=== PATIENT | female | born 1990 | race Caucasian/White ===

== ENCOUNTER 2016-11-26 13:13 | Emergency (ER) | payer MEDICAID ==
--- NOTE | 2016-11-26 14:21 | ER Document Report ---
ED Medical Screen (RME) - General Chief Complaint: Abdominal Pain Stated Complaint: ABDOMINAL PAIN Time Seen by Provider: 11/26/16 14:20 Notes: Patient states she has suprapubic abdominal pain. She has some dysuria. No vaginal bleeding or discharge. No chronic medical conditions. No previous abdominal surgeries. She states her periods have been regular. TRAVEL OUTSIDE OF THE [place] IN LAST 30 DAYS: No - Related Data Allergies/Adverse Reactions: No Known Allergies Allergy (Verified 11/26/16 14:15) Past Medical History - Social History Chew tobacco use (# tins/day): No Frequency of alcohol use: None Drug Abuse: None Renal/ Medical History: Denies: Hx Peritoneal Dialysis Surgical Hx: Negative Physical Exam - Vital signs Vitals: Temp Pulse Resp BP Pulse Ox 98.6 F 92 16 139/71 H 100 11/26/16 13:37 11/26/16 13:37 11/26/16 13:37 11/26/16 13:37 11/26/16 13:37 Course - Vital Signs Vital signs: Temp Pulse Resp BP Pulse Ox 98.6 F 92 16 139/71 H 100 11/26/16 13:37 11/26/16 13:37 11/26/16 13:37 11/26/16 13:37 11/26/16 13:37
[2016-11-26 15:16] LABS: APPEARANCE,URINE CLEAR; BILIRUBIN,URINE NEGATIVE (NEGATIVE); GLUCOSE, URINE NEGATIVE (NEGATIVE); KETONES,URINE NEGATIVE (NEGATIVE); LEUKOCYTE ESTERASE,URINE NEGATIVE (NEGATIVE); NITRITE,URINE NEGATIVE (NEGATIVE); PROTEIN,URINE NEGATIVE (NEGATIVE); URINE SPECIFIC GRAVITY 1.006; UROBILINOGEN,URINE NEGATIVE mg/dL (<2.0)
--- NOTE | 2016-11-26 15:50 | ER Document Report ---
HPI - HPI Patient complains to provider of: Suprapubic pain Onset: Yesterday Onset/Duration: Gradual Quality of pain: Achy Pain Level: 4 Context: Patient presents complaining of lower suprapubic pain and some mild dysuria. Patient does report nausea. Patient denies any vomiting, diarrhea, fever. Patient denies any vaginal bleeding or discharge. Last bowel movement was today and was normal. Associated Symptoms: Nausea, Other - Lower pelvic pain. denies: Fever, Vomiting Exacerbated by: Denies Relieved by: Denies Similar symptoms previously: No Recently seen / treated by doctor: No - ROS ROS below otherwise negative: Yes Systems Reviewed and Negative: Yes All other systems reviewed and negative - CONSTITUTIONAL Constitutional: DENIES: Fever - NEURO Neurology: DENIES: Headache - CARDIOVASCULAR Cardiovascular: DENIES: Chest pain - GASTROINTESTINAL Gastrointestinal: REPORTS: Abdominal Pain, Nausea. DENIES: Patient vomiting, Diarrhea - URINARY Urinary: REPORTS: Dysuria. 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 IN LAST 30 DAYS: No - HEENT HEENT: Atraumatic, Normal ENT Exam, Normocephalic - NECK Neck: Normal Inspection, Supple - RESPIRATORY Respiratory: Breath Sounds Normal, No Respiratory Distress, Chest Non-Tender O2 Sat by Pulse Oximetry: 100 - CARDIOVASCULAR Cardiovascular: Regular Rate, Regular Rhythm, No Murmur - GI/ABDOMEN Gastrointestinal: Abdomen Soft, Abdomen Tender - suprapubic, No Organomegaly, Normal Bowel Sounds. negative: Abdominal Guarding - BACK Back: Normal Inspection. negative: CVA Tenderness-Right, CVA Tenderness-Left - MUSCULOSKELETAL/EXTREMETIES Musculoskeletal/Extremeties: ANABELLE FELICIANO - NEURO Level of Consciousness: Awake, Alert, Appropriate Motor/Sensory: No Motor Deficit - DERM Integumentary: Warm, Dry, No Rash Course - Re-evaluation Re-evalutation: 11/26/16 Abdomen continues soft, no guarding, mild suprapubic tenderness. No peritoneal signs. Patient presents with abdominal pain without signs of peritonitis or other life-threatening or serious etiology. Patient appears stable for discharge and has been instructed to return immediately if the symptoms worsen in any way for reevaluation. - Vital Signs Vital signs: Temp Pulse Resp BP Pulse Ox 98.6 F 92 16 139/71 H 100 11/26/16 13:37 11/26/16 13:37 11/26/16 13:37 11/26/16 13:37 11/26/16 13:37 - Laboratory Laboratory results interpreted by me: 11/26/16 15:00 Urine Blood SMALL H 11/26/16 17:50 Labs- Entire Visit 11/26/16 11/26/16 15:00 17:10 Urine Color STRAW Urine Appearance CLEAR Urine pH 6.0 Ur Specific [place] 1.006 Urine Protein NEGATIVE Urine Glucose (UA) NEGATIVE Urine Ketones NEGATIVE Urine Blood SMALL H Urine Nitrite NEGATIVE Urine Bilirubin NEGATIVE Urine Urobilinogen NEGATIVE Ur Leukocyte Esterase NEGATIVE Urine RBC (Auto) 1 Squamous Epi Cells Auto 1 Urine Ascorbic Acid NEGATIVE Urine HCG, Qual NEGATIVE Bacteria (Wet Prep) 3+ BACTERIA SEEN Trichomonas (Wet Prep) NO TRICHOMONAS SEEN Vaginal WBC 1+ WBCS SEEN Vaginal Yeast NO YEAST SEEN Discharge - Discharge Clinical Impression: PID (pelvic inflammatory disease), Nausea Condition: Stable Disposition: HOME, SELF-CARE Instructions: Doxycycline ([facility]), Metronidazole ([facility]), Pelvic Inflammatory Disease ([facility]), Rocephin ([facility]) Additional Instructions: Return immediately for any new or worsening symptoms Followup with your primary care provider, call tomorrow to make a followup appointment Cultures are pending, we will call if you need any different treatment Prescriptions: Doxycycline Hyclate 100 mg PO BID #28 capsule Metronidazole [Flagyl 500 mg Tablet] 500 mg PO BID #14 tablet Ondansetron HCl [Zofran 4 mg Tablet] 1 - 2 tab PO Q6 PRN #15 tablet PRN Reason: Referrals: [facility] [Provider Group] - Follow up as needed
[2016-11-26] MEDS ORDERED: LIDOCAINE 1% INJ-PF (10 MG/ML) 30 ML SDV INJ ONE (17:29)
[2016-11-26] MEDS ORDERED: CEFTRIAXONE INJ 250 MG VIAL IM ONE (17:29)
[2016-11-26] MEDS ORDERED: DOXYCYCLINE HYCLATE 100 MG TABLET PO ONE (17:54)
[2016-11-26] MEDS ORDERED: ONDANSETRON 4 MG TAB.RAPDIS PO ONE (17:54)
[2016-11-26] MEDS ORDERED: METRONIDAZOLE 500 MG TABLET PO ONE (17:54)
[2016-11-26 18:49] LABS: CHLAM PCR NOT DETECTED (NOT DETECT)
[2016-11-26 19:00] VITALS: BP 123/73
== END 2016-11-26 18:59 | disposition home or self-care (01) ==
LOC: ER 13:13
DX: N73.9 Female pelvic inflammatory disease, unspecified (principal); R11.0 Nausea; R10.2 Pelvic and perineal pain; R30.0 Dysuria
CPT/HCPCS: 99284; 96372; 87086; 87210; 81025; 81001; 87491; 87591; J3490 ×3; S0119; J0696

== ENCOUNTER 2019-12-16 08:28 | Inpatient (IN) | payer MEDICAID ==
[2019-12-16 08:59] LABS: APPEARANCE,URINE SLIGHTLY-CLOUDY; BILIRUBIN,URINE NEGATIVE (NEGATIVE); COLOR,URINE YELLOW; GLUCOSE, URINE NEGATIVE (NEGATIVE); KETONES,URINE TRACE mg/dL (NEGATIVE); LEUKOCYTE ESTERASE,URINE SMALL (NEGATIVE); NITRITE,URINE NEGATIVE (NEGATIVE); PROTEIN,URINE NEGATIVE (NEGATIVE); URINE SPECIFIC GRAVITY 1.018; UROBILINOGEN,URINE NEGATIVE mg/dL (<2.0)
[2019-12-16 09:14] LABS: URINE AMPHETAMINES SCREEN NEGATIVE; URINE BARBITURATES SCREEN NEGATIVE; URINE BENZODIAZEPINES SCREEN NEGATIVE; URINE COCAINE SCREEN NEGATIVE; URINE MARIJUANA (THC) SCREEN NEGATIVE; URINE METHADONE SCREEN NEGATIVE; URINE PHENCYCLIDINE SCREEN NEGATIVE
[2019-12-16] MEDS ORDERED: RINGERS SOLUTION,LACTATED 1,000 ML IV ONE (10:33)
[2019-12-16] MEDS ORDERED: OXYTOCIN 10 UNIT/ML VIAL ONE (11:15)
[2019-12-16] MEDS ORDERED: ONDANSETRON HCL INJ/PF 4 MG/2 ML SDV ONE (11:16)
[2019-12-16] MEDS ORDERED: LIDOCAINE 1% INJ-PF (10 MG/ML) 30 ML SDV ONE (11:16)
[2019-12-16] MEDS ORDERED: MISOPROSTOL 0.2 MG TABLET ONE (11:16)
[2019-12-16] MEDS ORDERED: OXYTOCIN/0.9 % SODIUM CHLORIDE 30 UNIT/500 ML RTUINJ ONE (11:16)
[2019-12-16] MEDS ORDERED: ONDANSETRON HCL INJ/PF 4 MG/2 ML SDV IV ONE (11:19)
[2019-12-16] MEDS ORDERED: RINGERS SOLUTION,LACTATED 1,000 ML IV PRN (11:33)
[2019-12-16 11:39] LABS: ABSOLUTE EOSINOPHILS # (AUTO) 0.1 10^3/uL (0.0-0.6); ABSOLUTE LYMPHOCYTES (AUTO) 1.3 10^3/uL (0.5-4.7); ABSOLUTE MONOCYTES (AUTO) 0.5 10^3/uL (0.1-1.4); ABSOLUTE NEUT (AUTO) 6.5 10^3/uL (1.7-8.2); BASOPHILS % (AUTO) 0.2 % (0-2); EOSINOPHILS % (AUTO) 0.7 % (0-6); HEMATOCRIT 33.8 % (36.0-47.0); HEMOGLOBIN 11.9 g/dL (12.0-15.5); LYMPHOCYTES % (AUTO) 15.5 % (13-45); MEAN CORPUSCULAR HEMOGLOBIN 29.5 pg (27.0-33.4); MEAN CORPUSCULAR HGB CONC 35.3 g/dL (32.0-36.0); MEAN CORPUSCULAR VOLUME 84 fl (80-97); MONOCYTES % (AUTO) 5.5 % (3-13); PLATELET COUNT 150 10^3/uL (150-450); RED BLOOD COUNT 4.04 10^6/uL (3.72-5.28); SEGMENTED NEUTROPHILS % (AUTO) 78.1 % (42-78); TOTAL CELLS COUNTED % (AUTO) 100 %; WHITE BLOOD COUNT 8.3 10^3/uL (4.0-10.5)
[2019-12-16] MEDS ORDERED: EPHEDRINE SULFATE INJ 50 MG/1 ML AMPULE ONE (11:45)
[2019-12-16] MEDS ORDERED: ROPIVACAINE HCL 0.2% INJ/PF (2 MG/ML) 20 ML SDV ONE (11:45)
[2019-12-16] MEDS ORDERED: FENTANYL/BUPIVACAINE/NS/PF 300 MCG/150 ML RTUINJ EPI ONE (11:45)
--- NOTE | 2019-12-16 11:46 | Admission Physical ---
Datetime Report Generated by CPN: 12/16/2019 11:46 CURRENT ADMISSION Chief Complaint: Uterine Contractions Indication for Induction: Not Applicable Admit Impression : Term, Intrauterine Admit Plan: Admit to Unit; Initiate Labor Protocol ALLERGIES Medication Allergies: No Medication Allergies: No Known Allergies (12/16/2019) Latex: No Latex Allergies OBSTETRICAL HISTORY EDC: 12/15/2019 00:00 : 2 Para: 1 Term: 1 : 0 SAB: 0 IAB: 0 Ectopic: 0 Livin Cesareans: 0 VBACs: 0 Multiple Births: 0 Gestational Diabetes: No Rh Sensitization: No Incompetent Cervix: No CASSIE: No Infertility: No ART Treatment: No Uterine Anomaly: No IUGR: No Hx Previous C/S: No Macrosomia: No Hx Loss/Stillborn: No PIH: No Hx : No Placenta Previa/Abruption: No Depression/PP Depression: No PTL/PROM: No Post Hemorrhage: No Current Procedures: Ultrasound; NST; BPP Obstetrical History Comments: G1 02/05/2014 41 weeks epidural no complications G2 Current SEE RECORDS Alcohol: No Marijuana : No Cocaine: No Other Illicit Drugs: No Cigarettes: Never Smoker. 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: No Heart Disease: No Hosp/Surgery: No Autoimmune Disorder: No Anesthetic Complications: No Kidney Disease: No Abnormal Pap Smear: No Neuro/Epilepsy: No Psychiatric Disorders: No Other Medical Diseases: No Hepatitis/Liver Disease: No Significant Family History: No Varicosities/Phlebitis: No Trauma/Violence : No Thyroid Dysfunction: No INFECTIOUS HISTORY Gonorrhea: No Genital Herpes: No Chlamydia: No Tuberculosis: No Syphilis: No Hepatitis: No HIV/AIDS Exposure: No Rash or Viral Illness: No HPV: No PHYSICAL EXAM General: Normal HEENT: Normal Neurologic: Normal Thyroid: Normal Heart: Normal Lungs: Normal Breast: Deferred Back: Normal Abdomen: Normal Genitourinary Exam: Normal Extremities: Normal DTRs: Normal Pelvic Type: Adequate FETUS A EGA: 40.1 PLANS FOR LABOR AND DELIVERY Labor and Delivery: None Pain Management: Epidural Feeding Preference: Formula Circumcision: Yes INFORMED CONSENT Signature: with User ID: [email or web address]
[2019-12-16] MEDS ORDERED: ZOLPIDEM TARTRATE 5 MG TABLET PO PRN (15:30)
[2019-12-16] MEDS ORDERED: BENZOCAINE/MENTHOL AEROSOL SPRAY 56 ML TOP PRN (15:30)
[2019-12-16] MEDS ORDERED: MEASLES,MUMPS&RUBELLA VACC/PF 0.5 ML VIAL SUBCUT PRN (15:30)
[2019-12-16] MEDS ORDERED: ACETAMINOPHEN WITH CODEINE #3 TABLET PO PRN ×2 (15:30)
[2019-12-16] MEDS ORDERED: DIPH/PERTUSS(ACELL)/TETANUS VAC/PF 0.5 ML SYR (>=10YO) IM PRN (15:30)
[2019-12-16] MEDS ORDERED: DIBUCAINE 1% OINTMENT 28 GM TP PRN (15:30)
[2019-12-16] MEDS ORDERED: OXYTOCIN/0.9 % SODIUM CHLORIDE 30 UNIT/500 ML RTUINJ IV PRN (15:30)
--- NOTE | 2019-12-16 16:10 | Delivery Summary ---
Del Sum A-C Datetime Report Generated by CPN: 12/16/2019 16:10 DELIVERY PERSONNEL DELIVERY PERSONNEL: [id number] Delivery Doctor:: Lila aOtes CNM Labor and Delivery Nurse:: Bambi Brownlee, RN Vp [employer] Products And Planning/ASSISTANT AT SURGERY: Alyssa Carter [facility] Additional Personnel: : Thea Araiza, RNC MATERNAL INFORMATION Delivery Anesthesia: Epidural Medications After Delivery: Pitocin Bolus-Please Comment; Pitocin 30 Units in 500ml NS/D5W Delivery QBL: 150 Maternal Complications: None Provider Comments: SVDVM over intact perineum PAVEL. Shoulders, body and cord delivered easily. Infant vigorous, to mothers abd, cord clamped x 2 cut per fob, 3VC noted. Placenta spont via house. Bleeding minimal. Mother and infant stable. LABOR SUMMARY EDC: 12/15/2019 00:00 No. Babies in Womb: 1 Attempted: No Labor Anesthesia: None LABOR INFORMATION Reason for Induction: Not Applicable Onset of Labor: 12/16/2019 10:24 Complete Dilatation: 12/16/2019 14:40 Oxytocin: N/A Group B Beta Strep: Negative Name of Antibiotic Given: NA Steroids Given: None Reason Steroids Not Administered: Not Applicable MEMBRANES Membranes Rupture Method: Artificial Rupture of Membranes: 12/16/2019 12:45 Length of Rupture (hr): 2.28 Amniotic Fluid Color: Clear Amniotic Fluid Amount: Small Amniotic Fluid Odor: Normal STAGES OF LABOR Stage 1 hr: 4 Stage 1 min: 16 Stage 2 hr: 0 Stage 2 min: 22 Stage 3 hr: 0 Stage 3 min: 12 Total Time in Labor hr: 4 Total Time in Labor min: 50 VAGINAL DELIVERY Episiotomy: None Laceration #1: None Laceration Extension #1: N/A Laceration Repair: Not Applicable Sponge Count Correct: N/A Sharps Count Correct: N/A BABY A INFORMATION Delivery Date/Time: 12/16/2019 15:02 Method of Delivery: Vaginal Nurse Controlled Delivery: No Born in Route : No : N/A Forceps: N/A Vacuum Extraction: N/A Shoulder Dystocia : No PRESENTATION/POSITION BABY A Presentation: Cephalic Cephalic Presentation: Vertex Vertex Position: Left Occipital Anterior Breech Presentation: N/A PLACENTA INFORMATION BABY A Placenta Delivery Time : 12/16/2019 15:14 Placenta Method of Delivery: Spontaneous Placenta Status: Delivered SCORES BABY A Heart Rate 1 min: >100 bpm Resp Effort 1 min: Good Cry Reflex Irritability 1 min: Cough or Sneeze or Pulls Away Muscle Tone 1 min: Active Motion Color 1 min: Body Hecker, Extremities Blue Resuscitation Effort 1 min: Tactile Stimulation SCORE 1 MIN: 9 Heart Rate 5 min: >100 bpm Resp Effort 5 min: Good Cry Reflex Irritability 5 min: Cough or Sneeze or Pulls Away Muscle Tone 5 min: Active Motion Color 5 min: Body Hecker, Extremities Blue Resuscitation Effort 5 min: N/A SCORE 5 MIN: 9 INFORMATION BABY A Gestational Age at Delivery: 40.1 Gestational Status: Full Term- 39- 40.6 Weeks Infant Outcome : Liveborn Condition : Stable Infant Sex: Male IDENTIFICATION BABY A ID Band Number: [id number] Mother's Name Verified: Yes RN Verifying : M. Sales, RN Additional Verifying Personnel: Mango Araiza, RN WEIGHT/LENGTH BABY A Birthweight (gm): 3297 Weight (lb): 7 Weight (oz): 4 Length (in): 20.50 Infant Length (cm): 52.07 CORD INFORMATION BABY A No. Cord Vessels: 3 Nuchal Cord : N/A Cord Blood Taken: Yes-For Storage (Mom's Blood type +) Infant Suction: None ASSESSMENT BABY A Skin to Skin: Yes Skin to Skin Time (min): 50 BABY B INFORMATION : N/A SIGNATURES Assignment: Alvarez Hewitt MD Signature: with User ID: [email or web address] : with User ID: Clement : I was personally available for consultation and serving as supervising physician for the [facility].
--- NOTE | 2019-12-16 16:10 | Birth Certificate Data ---
Cert Data Datetime Report Generated by BRITTANY: 12/16/2019 16:10 CERTIFICATE DATA 47a. Care: Yes (12/16/2019 08:49:Bambi Brownlee RN) 47b. Date of First Visit: 04/28/2019 00:00 (12/16/2019 08:49:Bambi Brownlee RN) 47c. Date of Last Visit: 12/13/2019 00:00 (12/16/2019 08:49:Bambi Brownlee RN) 48a. Number of Prev Live Births: 1 (12/16/2019 08:49:Bambi Brownlee RN) 48b. Now Livin (12/16/2019 08:49:Bambi Brownlee RN) 48c. Live Births Now : 0 (12/16/2019 08:49:QS system process) 48d. Date of Last Live : 02/05/2014 00:00 (12/16/2019 08:49:Bambi Brownlee RN) 48e. Losses: 0 (12/16/2019 08:49:Bambi Brownlee RN) RISK FACTORS IN THIS 49a. Diabetes: No (12/16/2019 08:49:Bambi Brownlee RN) 49b. Hypertension: No (12/16/2019 08:49:Bambi Brownlee RN) 49c. Previous Births: 0 (12/16/2019 08:49:Bambi Brownlee RN) 49d. Stillborns: No (12/16/2019 08:49:Bambi Brownlee RN) 49d. IUGR: No (12/16/2019 08:49:Bambi Brownlee RN) 49e. Infertility Treatment: No (12/16/2019 08:49:Bambi Brownlee RN) 49f. Previous Cesareans: 0 (12/16/2019 08:49:Bambi Brownlee RN) Mother's Height 50b. Height Inches: 72 (12/16/2019 08:48:QS system process) Mother's Weight 51a. Pre- Weight (lbs): 260 (12/16/2019 08:49:Bambi Brownlee RN) 51b. Weight at Delivery (lbs): 288 (12/16/2019 08:48:QS system process) 52. Dt Last Normal Menses Began: 03/10/2019 00:00 (12/16/2019 08:49:Bambi Brownlee RN) Infections Present/Treated 53a. Gonorrhea: No (12/16/2019 08:49:Bambi Brownlee, RN) Results this Hospital Visit : Negative (12/16/2019 08:49:Bambi Brownlee RN) 53b. Syphilis: No (12/16/2019 08:49:Bambi Brownlee RN) 53c. Chlamydia: No (12/16/2019 08:49:Bambi Brownlee, RN) Results this Hospital Visit: Positive (12/16/2019 08:49:Bambi Brownlee RN) 53d. Hepatitis B: No (12/16/2019 08:49:Bambi Brownlee RN) Results this Hospital Visit: Negative (12/16/2019 08:49:Bambi Brownlee, RN) 53e. Hepatitis C: Negative (12/16/2019 08:49:Bambi Brownlee RN) 53h. Mother Tested for HBsAG: Yes (12/16/2019 08:49:Bambi Brownlee RN) 53i. Date Tested: 06/02/2019 00:00 (12/16/2019 08:49:Bambi Brownlee RN) 53j. Test Result: Negative (12/16/2019 08:49:Bambi Brownlee RN) Obstetric Procedures 54a, b, c. Obstetric Procedures: Ultrasound; NST; BPP (12/16/2019 08:49:Bambi Brownlee RN) Cigarette Smoking Cigarette Smoking: Never Smoker. [id number] (12/16/2019 08:49:Bambi Brownlee RN) 55a. 3 Months Before Preg - Ci (12/16/2019 08:49:Bambi Brownlee RN) 55a. Packs: 0 (12/16/2019 08:49:Bambi Brownlee RN) 55b. 1st Trimester of Preg- Ci (12/16/2019 08:49:Bambiani Brownlee RN) 55b. Packs: 0 (12/16/2019 08:49:Bambi Brownlee RN) 55c. 2nd Trimester of Preg- Ci (12/16/2019 08:49:Bambi Brownlee RN) 55c. Packs: 0 (12/16/2019 08:49:Bambi Brownlee RN) 55d. 3rd Trimester of Preg- Ci (12/16/2019 08:49:Bambi Brownlee RN) 55d. Packs: 0 (12/16/2019 08:49:Bambi Brownlee RN) Onset of Labor 56a. PROM >12 Hrs: 2.28 (12/16/2019 08:49:QS system process) 56b. Precipitous Labor <3 Hrs: 4 (12/16/2019 08:49:QS system process) 56c. Prolonged Labor > 20 Hrs: 4 (12/16/2019 08:49:QS system process) 57a. Induction of Labor: N/A (12/16/2019 08:49:Bambi Brownlee RN) 57c. Non-Vertex Presentation A: Vertex (12/16/2019 08:49:Bambi Brownlee RN) 57d. Steroids - Lung Mat: None (12/16/2019 08:49:Bambi Brownlee RN) 57d. Steroids - Lung Mat: Not Applicable (12/16/2019 08:49:Bambi Brownlee RN) 57g. Moderate/Heavy Meconium: Clear (12/16/2019 12:45:Bambi Brownlee RN) 57i. Epidural/Spinal Anesthesia: None (12/16/2019 08:49:Bambi Brownlee RN) Method of Delivery 58a. Forceps - Unsuccessful A: N/A (12/16/2019 08:49:Bambi Brownlee RN) 58b. Vacuum - Unsuccessful A: N/A (12/16/2019 08:49:Bambi Brownlee RN) 58c. Presentation at 58c. Presentation at - A : Vertex (12/16/2019 08:49:Bambi Brownlee RN) 58c. Presentation at - A : N/A (12/16/2019 08:49:Bambi Brownlee RN) 58c. Presentation at - A : Cephalic (12/16/2019 08:49:Bambi Brownlee RN) Final Route and Method of Del 58d. Baby A Route/Delivery: Vaginal (12/16/2019 15:02:Abmbi Sales, RN) 58e. Trial of Labor Attempted: No (12/16/2019 08:49:BambiE-Diversify Yourself, ) 58e. Trial of Labor Attempted A: N/A (12/16/2019 08:49:Bambi Wibbitz, ) 58e. Trial of Labor Attempted B: N/A (12/16/2019 08:49:BambiE-Diversify Yourself, ) Maternal Morbidity 59b. 3rd or 4th Degree Lacs: None (12/16/2019 08:49:Lila Oates CNM) Birthweight Baby A: 3297 (12/16/2019 08:49:Bambi Sales, RN) 60a. Pounds : 7 (12/16/2019 08:49:QS system process) 60b. Ounces: 4 (12/16/2019 08:49:QS system process) 61. GA at Delivery Baby A: 40.1 (12/16/2019 08:49:Bambi SalesCHRISTEL) : Full Term- 39- 40.6 Weeks (12/16/2019 08:49:QS system process) 62a. 5 Minute Baby A: 9 (12/16/2019 08:49:QS system process)
[2019-12-16] MEDS ORDERED: CALCIUM CARBONATE 500 MG TAB.CHEW PO ONE (17:08)
[2019-12-16] MEDS: FERROUS SULFATE 325 MG TABLET PO SCH (18:45)
[2019-12-16] MEDS: DOCUSATE SODIUM 100 MG CAPSULE PO SCH (18:45)
[2019-12-16] MEDS: IBUPROFEN 800 MG TABLET PO SCH (21:42)
[2019-12-17] MEDS: IBUPROFEN 800 MG TABLET PO SCH ×3 (05:46→22:20)
[2019-12-17 06:50] LABS: HEMATOCRIT 29.9 % (36.0-47.0); HEMOGLOBIN 10.4 g/dL (12.0-15.5); MEAN CORPUSCULAR HEMOGLOBIN 29.7 pg (27.0-33.4); MEAN CORPUSCULAR HGB CONC 34.7 g/dL (32.0-36.0); MEAN CORPUSCULAR VOLUME 86 fl (80-97); PLATELET COUNT 137 10^3/uL (150-450); WHITE BLOOD COUNT 8.1 10^3/uL (4.0-10.5)
[2019-12-17] MEDS: SENNOSIDES/DOCUSATE 8.6-50 MG 1 EACH TABLET PO SCH (09:38)
[2019-12-17] MEDS: PRENATAL VITAMIN W DHA CAPSULE PO SCH (09:39)
[2019-12-17] MEDS: FERROUS SULFATE 325 MG TABLET PO SCH ×2 (09:39→18:13)
[2019-12-17] MEDS: DOCUSATE SODIUM 100 MG CAPSULE PO SCH ×2 (09:39→18:13)
--- NOTE | 2019-12-17 12:59 | PDOC PROGRESS REPORT ---
Subjective-OB Progress Note for:: 12/17/19 Subjective: reports bleeding slowing, pain controlled with current meds. denies needs Physical Exam (OB) Vital Signs: Temp Pulse Resp BP Pulse Ox 97.4 F 62 19 108/56 L 96 12/17/19 08:37 12/17/19 08:37 12/17/19 08:37 12/17/19 08:37 12/17/19 08:37 Intake & Output 12/16/19 12/17/19 12/18/19 06:59 06:59 06:59 Intake Total 120 Balance 120 Weight 129.6 kg - Maternal Morbidity 59. Maternal Morbidity (serious complications experinced by the mother associated with labor and delivery: None of the above - Abdomen Description: Soft Hernia Present: No Fundal Description: Firm Fundal Height: u/u - u/2 - Abdominal Distension: No distension Tenderness: Nontender - Extremities Lower extremities: Vasu's sign - neg Calf: Normal, Nontender Objective-Diagnostic Laboratory: 12/17/19 06:24 12/17/19 06:24 WBC 8.1 RBC 3.50 L Hgb 10.4 L Hct 29.9 L MCV 86 MCH 29.7 MCHC 34.7 RDW 16.0 H Plt Count 137 L Assessment and Plan(PN) - Assessment and Plan (1) Vaginal delivery Is this a current diagnosis for this admission?: Yes (2) Active labor at term Is this a current diagnosis for this admission?: Yes - Time Spent with Patient Time with patient: Less than 15 minutes Medications reviewed and adjusted accordingly: Yes - Disposition Anticipated Discharge Disposition: Home, Self Care Anticipated Discharge Timeframe: within 24 hours
[2019-12-18] MEDS: IBUPROFEN 800 MG TABLET PO SCH (06:00)
[2019-12-18] MEDS: PRENATAL VITAMIN W DHA CAPSULE PO SCH (10:33)
[2019-12-18] MEDS: FERROUS SULFATE 325 MG TABLET PO SCH (10:33)
[2019-12-18] MEDS: SENNOSIDES/DOCUSATE 8.6-50 MG 1 EACH TABLET PO SCH (10:33)
[2019-12-18] MEDS: DOCUSATE SODIUM 100 MG CAPSULE PO SCH (10:33)
--- NOTE | 2019-12-18 10:48 | PDOC DISCHARGE SUMMARY ---
Impression - Admit/DC Date/PCP Admission Date/Primary Care Provider: 12/16/19 10:34 LIN REDD MD Discharge Date: 12/18/19 - Discharge Diagnosis (1) Vaginal delivery Is this a current diagnosis for this admission?: Yes (2) Active labor at term Is this a current diagnosis for this admission?: Yes - Additional Information Discharge Activity: Balance Activity w/Rest, Pelvic Rest Referrals: LIN REDD MD [Primary Care Provider] - Prescriptions: Ibuprofen [Motrin 800 mg Tablet] 800 mg PO Q8HP PRN #60 tablet PRN Reason: Home Medications: Pnv No.95/Ferrous Fum/Folic AC [ Caplet] 1 tab PO DAILY 12/16/19 Ibuprofen [Motrin 800 mg Tablet] 800 mg PO Q8HP PRN #60 tablet 12/18/19 Hospital Course 59. Maternal Morbidity (serious complications experinced by the mother associated with labor and delivery: None of the above Results Laboratory Results: WBC 8.1 10^3/uL (4.0-10.5) 12/17/19 06:24 RBC 3.50 10^6/uL (3.72-5.28) L 12/17/19 06:24 Hgb 10.4 g/dL (12.0-15.5) L 12/17/19 06:24 Hct 29.9 % (36.0-47.0) L 12/17/19 06:24 MCV 86 fl (80-97) 12/17/19 06:24 MCH 29.7 pg (27.0-33.4) 12/17/19 06:24 MCHC 34.7 g/dL (32.0-36.0) 12/17/19 06:24 RDW 16.0 % (11.5-14.0) H 12/17/19 06:24 Plt Count 137 10^3/uL (150-450) L 12/17/19 06:24 Lymph % (Auto) 15.5 % (13-45) 12/16/19 11:19 Garza % (Auto) 5.5 % (3-13) 12/16/19 11:19 Eos % (Auto) 0.7 % (0-6) 12/16/19 11:19 Baso % (Auto) 0.2 % (0-2) 12/16/19 11:19 Absolute Neuts (auto) 6.5 10^3/uL (1.7-8.2) 12/16/19 11:19 Absolute Lymphs (auto) 1.3 10^3/uL (0.5-4.7) 12/16/19 11:19 Absolute Monos (auto) 0.5 10^3/uL (0.1-1.4) 12/16/19 11:19 Absolute Eos (auto) 0.1 10^3/uL (0.0-0.6) 12/16/19 11:19 Absolute Basos (auto) 0.0 10^3/uL (0.0-0.2) 12/16/19 11:19 Seg Neutrophils % 78.1 % (42-78) H 12/16/19 11:19 Urine Color YELLOW 12/16/19 08:35 Urine Appearance SLIGHTLY-CLOUDY 12/16/19 08:35 Urine pH 6.0 (5.0-9.0) 12/16/19 08:35 Ur Specific [place] 1.018 12/16/19 08:35 Urine Protein NEGATIVE mg/dL (NEGATIVE) 12/16/19 08:35 Urine Glucose (UA) NEGATIVE mg/dL (NEGATIVE) 12/16/19 08:35 Urine Ketones TRACE mg/dL (NEGATIVE) H 12/16/19 08:35 Urine Blood NEGATIVE (NEGATIVE) 12/16/19 08:35 Urine Nitrite NEGATIVE (NEGATIVE) 12/16/19 08:35 Urine Bilirubin NEGATIVE (NEGATIVE) 12/16/19 08:35 Urine Urobilinogen NEGATIVE mg/dL (<2.0) 12/16/19 08:35 Ur Leukocyte Esterase SMALL (NEGATIVE) H 12/16/19 08:35 Urine Ascorbic Acid NEGATIVE (NEGATIVE) 12/16/19 08:35 Urine Opiates Screen NEGATIVE 12/16/19 08:35 Urine Methadone Screen NEGATIVE 12/16/19 08:35 Ur Barbiturates Screen NEGATIVE 12/16/19 08:35 Ur Phencyclidine Scrn NEGATIVE 12/16/19 08:35 Ur Amphetamines Screen NEGATIVE 12/16/19 08:35 U Benzodiazepines Scrn NEGATIVE 12/16/19 08:35 Urine Cocaine Screen NEGATIVE 12/16/19 08:35 U Marijuana (THC) Screen NEGATIVE 12/16/19 08:35 RPR NONREACTIVE (NONREACTIVE) 12/16/19 11:19 Blood Type B POSITIVE 12/16/19 11:19 Antibody Screen NEGATIVE 12/16/19 11:19 Plan Plan of Treatment: follow up in one week at [facility] for blood pressure check
[2019-12-18 12:58] VITALS: BP 108/56
== END 2019-12-18 13:17 | disposition home or self-care (01) | DRG 807 ==
LOC: LC 08:28 → LR 10:34 → 2S 18:00
PROVIDERS: ADMIT Obstetrics & Gynecology Gynecology; ATTEND Obstetrics & Gynecology Gynecology
PROC: 10E0XZZ Delivery of Products of Conception, External Approach (ICD-10-PCS; principal; 2019-12-16)
DX: O80 Encounter for full-term uncomplicated delivery (principal); Z37.0 Single live birth; Z3A.40 40 weeks gestation of pregnancy
CPT/HCPCS: 1967; 36415; 59025; 80307; 81005; 85025; 85027; 86592; 86850; 86900; 86901; 94760; J2405; J2590; J2795; J3010; J3490